=== PATIENT | male | born 1985 | race Two or more races ===

== ENCOUNTER 2018-01-09 01:25 | Emergency (ER) | payer SELFPAY ==
[2018-01-09 01:34] VITALS: BP 127/82; PULSE 80; RESP 16; TEMP 98.2; O2SAT 97
== END 2018-01-09 02:06 | disposition left against medical advice (07) ==
LOC: C.ER 01:25
DX: Z02.89 Encounter for other administrative examinations (principal); M25.562 Pain in left knee